=== PATIENT | male | born 1970 | race American Indian/Alaskan Native ===

== ENCOUNTER 2017-04-23 22:09 | Emergency (ER) | payer SELFPAY | END 2017-04-23 22:10 | disposition left against medical advice (07) | LOC: ED 22:09 | DX: Z53.21 Procedure and treatment not carried out due to patient leaving prior to being seen by health care provider (principal) ==

== ENCOUNTER 2017-04-24 09:42 | Emergency (ER) | payer OTHER ==
[2017-04-24 10:18] VITALS: BP 146/95
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
== END 2017-04-24 12:42 | disposition home or self-care (01) ==
LOC: ED 09:42
DX: S13.4XXA Sprain of ligaments of cervical spine, initial encounter (principal); V89.2XXA Person injured in unspecified motor-vehicle accident, traffic, initial encounter; Y93.89 Activity, other specified; Y92.89 Other specified places as the place of occurrence of the external cause; Y99.8 Other external cause status
CPT/HCPCS: 99282